=== PATIENT | female | born 1950 ===

== ENCOUNTER 2019-09-30 09:20 | Outpatient (CLI) | payer MEDICARE, OTHER ==
--- NOTE | 2019-09-30 10:03 | ULT ---
GALLBLADDER ULTRASOUND: HISTORY:Epigastric pain FINDINGS: The liver demonstrates homogeneous echotexture without focal mass or intrahepatic biliary ductal dila tation. No gallstones, gallbladder wall thickening or pericholecystic fluid are seen. The right kidney and visualized portions of the pancreas are normal. The common duct [id number] in diameter. No free fluid is seen in the Soto's pouch. IMPRESSION: Normal exam.
== END 2019-09-30 09:21 | disposition home or self-care (01) ==
LOC: SCSULT 09:20
PROVIDERS: ATTEND Internal Medicine Gastroenterology
DX: R10.13 Epigastric pain (principal); R63.4 Abnormal weight loss
CPT/HCPCS: 76705